=== PATIENT | male | born 1955 | race Caucasian/White ===

== ENCOUNTER → 2016-12-25 | Day surgery (SDC) | payer MEDICAID ==
[~2016-12-25] VITALS: Ht 182.9 cm; Wt 131.5 kg
[~2016-12-25] MED LIST: ACETAMINOPHEN 325 MG TAB PO PRN; ALBU17IN2 INH; ATOR1TAB21 PO; AZEL0.055; AcetaZOLAMIDE 500 MG ER CAP As Ordered ONE; BSS with VANC/TOB/EPI for EYE CASES IR ONE; CYCLOPENTOLATE 2% OPHTH SOLN 2ML BTL OD ONE; GABA-279 PO; GLIM4TAB PO; HEALON DUET (HEALON 10MG/ML 0.55ML & HEALON ENDOCOAT 30MG/ML 0.85ML) As Ordered ONE; IBUP-1022 PO; JANU100T PO; KETOROLAC 0.5% OPHTH SOLN OD ONE; LEVO150T7 PO; LIDOCAINE 1% SDV 5 ML VIAL As Ordered ONE; LIDOCAINE 2% W/EPIN INJ 20ML **PRES FREE As Ordered ONE; LIDOCAINE 4% INJ 5 ML AMP OU ONE; LISI40TAB PO; LR 1,000 ML IV SCH; LR 500 ML IV ONE; MIDAZOLAM INJ 2 MG/2 ML VIAL (J2250) As Ordered ONE; MOXIFLOXACIN IN BSS 0.25MG/0.25ML INTRACAMERAL INJ (OR EYE ONLY)(J2280) As Ordered ONE; OFLOXACIN 0.3 % (OCUFLOX) OPTH SOL 5ML OD ONE; OMEP20CA3 PO; PHENYLEPHRINE 2.5% OPHTH SOL 2ML OD ONE; POVIDONE-IODINE 5% OPHTH PREP SOL 30ML As Ordered ONE; PROPARACAINE 0.5% OPHTH SOL 15ML OD PRN; TRIAMCINOLONE PRES FR 40 MG/ML 1ML(TRIESENCE)(OR EYE ONLY)(J3300 PER 1MG) As Ordered ONE; TRIMETHOBENZAMIDE 300 MG CAP PO PRN; TROPICAMIDE 1% OPHTH SOLN 2ML OD ONE; fentaNYL 100 MCG/2 ML INJECTION (J3010) As Ordered ONE
[2016-12-25 09:15] VITALS: BP 132/76
--- NOTE | 2016-12-26 11:03 | RO ---
DATE OF PROCEDURE: 12/25/2016 PREOPERATIVE DIAGNOSES: Cataract, right eye. Zonular dialysis. POSTOPERATIVE DIAGNOSIS: Cataract, right eye. PROCEDURE: Phacoemulsification with intraocular lens implantation and placement of capsular tension ring (CTR) 14 mm in the right eye. SURGEON: Lubna Ortega MD CHEMIST INTERN: None. COMPLICATIONS: None. PROCEDURE IN DETAIL: After informed consent, a patient that had had previous retinal detachment repair, the patient was brought to the operating room and laid in supine position. The left eye was prepped and draped in a sterile fashion for ophthalmic surgery and a lid speculum was placed. A side port incision was made and EndoCoat was injected into the anterior chamber. Temporal clear cornea incision was made with a 2.5 mm keratome and capsulorrhexis carried out followed by hydrodissection. At this point, it was noted that the patient had a small amount of zonular dialysis inferiorly, probably from the previous surgeries, or for some other reason. After hydrodissectin, phacoemulsification was carried out in a divide and conquer method carefully within the capsular bag. After removing the nuclear material, the CTR 14 mm was introduced because of the 2-3 o'clock hours of zonular dialysis inferiorly. A limited, but almost complete cortical aspiration was done followed by dilation of the capsular bag with Healon and placement of the PCB00 17.0 diopter implant in the bag. Excess viscoelastic was then aspirated. A little more clean up of the cortical material was done. The wound was hydrated and intracameral moxifloxacin was given along with sub-Tenon kenalog. At the end of the case, the case was discussed in detail and the patient returned to the recovery room in stable condition.
== END | disposition home or self-care (01) ==
LOC: M SDC 06:47
PROVIDERS: ATTEND Ophthalmology
DX: H26.9 Unspecified cataract (principal); H59.021 Cataract (lens) fragments in eye following cataract surgery, right eye; I10 Essential (primary) hypertension; E78.00 Pure hypercholesterolemia, unspecified; E11.9 Type 2 diabetes mellitus without complications; E03.9 Hypothyroidism, unspecified; K21.9 Gastro-esophageal reflux disease without esophagitis; M12.9 Arthropathy, unspecified; G47.9 Sleep disorder, unspecified; E78.5 Hyperlipidemia, unspecified; N52.9 Male erectile dysfunction, unspecified; Z88.2 Allergy status to sulfonamides; Z79.899 Other long term (current) drug therapy; Z86.69 Personal history of other diseases of the nervous system and sense organs; Z87.891 Personal history of nicotine dependence
CPT/HCPCS: 66982; A4649; J2250; J2280; J3010; J3300

== ENCOUNTER 2017-01-22 07:00 | Day surgery (SDC) | payer MEDICAID, OTHER ==
[~2017-01-22] VITALS: Ht 182.9 cm; Wt 131.5 kg
[~2017-01-22 07:00] MED LIST changes: -ACETAMINOPHEN 325 MG TAB PO PRN; -AcetaZOLAMIDE 500 MG ER CAP As Ordered ONE; -CYCLOPENTOLATE 2% OPHTH SOLN 2ML BTL OD ONE; +CYCLOPENTOLATE 2% OPHTH SOLN 2ML BTL OS ONE; -KETOROLAC 0.5% OPHTH SOLN OD ONE; +LIDOCAINE 1% SDV 5 ML VIAL SQ ONE; -LIDOCAINE 2% W/EPIN INJ 20ML **PRES FREE As Ordered ONE; +LIDOCAINE 3.5 % 1ML OPHTH TOPICAL GEL OU ONE; -LIDOCAINE 4% INJ 5 ML AMP OU ONE; -LR 500 ML IV ONE; -MIDAZOLAM INJ 2 MG/2 ML VIAL (J2250) As Ordered ONE; -OFLOXACIN 0.3 % (OCUFLOX) OPTH SOL 5ML OD ONE; +OFLOXACIN 0.3 % (OCUFLOX) OPTH SOL 5ML OS ONE; -PHENYLEPHRINE 2.5% OPHTH SOL 2ML OD ONE; +PHENYLEPHRINE 2.5% OPHTH SOL 2ML OS ONE; -PROPARACAINE 0.5% OPHTH SOL 15ML OD PRN; -TRIMETHOBENZAMIDE 300 MG CAP PO PRN; -TROPICAMIDE 1% OPHTH SOLN 2ML OD ONE; +TROPICAMIDE 1% OPHTH SOLN 2ML OS ONE; -fentaNYL 100 MCG/2 ML INJECTION (J3010) As Ordered ONE
[2017-01-22] MEDS ORDERED: MIDAZOLAM INJ 2 MG/2 ML VIAL (J2250) As Ordered ONE (08:10)
[2017-01-22] MEDS ORDERED: fentaNYL 100 MCG/2 ML INJECTION (J3010) As Ordered ONE (08:10)
[2017-01-22 09:35] VITALS: BP 121/66
== END 2017-01-22 09:44 | disposition home or self-care (01) ==
LOC: M SDC 07:00
PROVIDERS: ATTEND Ophthalmology
DX: H26.9 Unspecified cataract (principal); I10 Essential (primary) hypertension; E78.5 Hyperlipidemia, unspecified; G47.9 Sleep disorder, unspecified; R06.83 Snoring; M12.9 Arthropathy, unspecified; K21.9 Gastro-esophageal reflux disease without esophagitis; E03.9 Hypothyroidism, unspecified; Z88.2 Allergy status to sulfonamides; Z79.899 Other long term (current) drug therapy; Z79.84 Long term (current) use of oral hypoglycemic drugs

== ENCOUNTER → 2017-01-30 | Outpatient (CLI) | payer OTHER ==
[~2017-01-30] MED LIST changes: -BSS with VANC/TOB/EPI for EYE CASES IR ONE; -CYCLOPENTOLATE 2% OPHTH SOLN 2ML BTL OS ONE; -HEALON DUET (HEALON 10MG/ML 0.55ML & HEALON ENDOCOAT 30MG/ML 0.85ML) As Ordered ONE; -LIDOCAINE 1% SDV 5 ML VIAL As Ordered ONE; -LIDOCAINE 1% SDV 5 ML VIAL SQ ONE; -LIDOCAINE 3.5 % 1ML OPHTH TOPICAL GEL OU ONE; -LR 1,000 ML IV SCH; -MOXIFLOXACIN IN BSS 0.25MG/0.25ML INTRACAMERAL INJ (OR EYE ONLY)(J2280) As Ordered ONE; -OFLOXACIN 0.3 % (OCUFLOX) OPTH SOL 5ML OS ONE; -PHENYLEPHRINE 2.5% OPHTH SOL 2ML OS ONE; -POVIDONE-IODINE 5% OPHTH PREP SOL 30ML As Ordered ONE; -TRIAMCINOLONE PRES FR 40 MG/ML 1ML(TRIESENCE)(OR EYE ONLY)(J3300 PER 1MG) As Ordered ONE; -TROPICAMIDE 1% OPHTH SOLN 2ML OS ONE
--- NOTE | 2017-02-04 14:22 | SLEEPHOME ---
DATE OF STUDY: 01/30/2017 ORDERED BY: Luma Taylor NP Diagnostic home sleep testing was performed due to concern for the obstructive sleep apnea syndrome. For testing, a NOX-T3 respiratory monitoring device was used. Continuous record was made of pulse, oxygen saturation, airflow, chest and abdominal strain, and body position. 9 hours and 59 minutes of data were reviewed. Of these, 7 hours and 56 minutes were marked as time in bed. During the interval marked time in bed, there were 383 respiratory events identified of 10 seconds in duration or greater for a respiratory event index of 48.2. The events identified were primarily obstructive, but 34 central events were also seen. Baseline pulse rate was 54 beats per minute. Pulse rate ranged 43 to 89. Baseline saturation was 91%. Lowest oxygen saturation was 60%. Testing was performed in both the supine and nonsupine positions. IMPRESSION: Abnormal home sleep testing with repetitive respiratory events and oxygen desaturations to 60% with a respiratory event index of 48.2 is consistent with severe obstructive sleep apnea syndrome. RECOMMENDATION: The patient should be encouraged to undergo formal sleep evaluation and in-laboratory pressure titration.
== END ==
LOC: M SLEEP HO 09:48
PROVIDERS: ATTEND Nurse Practitioner Adult Health
DX: G47.30 Sleep apnea, unspecified (principal)

== ENCOUNTER → 2017-05-22 | Outpatient (CLI) | payer OTHER ==
--- NOTE | 2017-05-22 15:26 | REP ---
Maxillofacial CT without contrast: History: J32.9. CT sinuses. No comparison imaging. Findings: Frontal sinuses are clear. Ethmoid, sphenoid and maxillary sinuses are clear bilaterally. Mastoid aeration is normal and symmetric. The patient is status post scleral banding in the left eye. No other intraorbital abnormality is seen. The bony nasal septum is essentially in the midline without evidence of septal beak. There is no evidence of nasal polyp. Ostiomeatal complexes are patent bilaterally. Impression: The paranasal sinuses are clear. Signed by Izaiah Crespo MD 05/23/2017 08:13 A
== END ==
LOC: M RAD 12:56
PROVIDERS: ATTEND Nurse Practitioner Family
DX: J32.9 Chronic sinusitis, unspecified (principal)

== ENCOUNTER → 2018-06-12 | Outpatient (CLI) | payer OTHER ==
[~2018-06-12] MED LIST changes: +GABA-1171 PO; -GABA-279 PO; +LASI40TA9 PO; +LISI40TA PO; -LISI40TAB PO; +MONT10TA2 PO
--- NOTE | 2018-06-12 19:24 | REP ---
MR LUMBAR SPINE WITHOUT CONTRAST: HISTORY: Back pain. Decreased signal intensity on T2-weighted images is present in the L2-3 through L4-5 intervertebral discs. The L3-4 and L4-5 intervertebral discs are decreased in height. These findings are consistent with disc degeneration. There is no disc bulge or herniation at the L1-2 level. There is hypertrophy of the posterior articulating facets. The L1 nerves exit the neural foramina without compression. A diffuse disc bulge is present at the L2-3 level. There is minimal compression of the thecal sac. There is hypertrophy of the posterior articulating facets. The L2 nerves exit the neural foramina without compression. A diffuse disc bulge is present at the L3-4 level. There is minimal compression of the thecal sac. There is hypertrophy of the posterior articulating facets. The L3 nerves exit the neural foramina without compression. A diffuse disc bulge is present at the L4-5 level. There is hypertrophy of the ligamenta flava and posterior articulating facets. These findings produce minimal central canal stenosis. The L4 nerves exit the neural foramina without compression. A diffuse disc bulge is present at the L5-S1 level. There is minimal compression of the thecal sac. There is hypertrophy of the posterior articulating facets. The L5 nerves exit the neural foramina without compression. The conus medullaris is normal in appearance terminating at the level of the T12-L1 intervertebral disc. Hemangiomas are present in the L2 and L4 vertebral bodies. Increased signal intensity on T2-weighted images is present in the superior endplate of the L4 vertebral body. This represents degenerative change. Normal signal intensity is present in the remaining lumbar vertebral bodies. A limbus vertebra is present at the L4 level. IMPRESSION: 1. Diffuse disc bulges at the L2-3, L3-4 and L5-S1 levels with minimal thecal sac compression. 2. Minimal central canal stenosis at the L4-5 level secondary to disc bulge, ligamentous and facet hypertrophy. Electronically Signed by Tr Peralta MD 06/12/2018 07:26 P
== END ==
LOC: M RAD 17:34
PROVIDERS: ATTEND Nurse Practitioner Family
DX: M51.26 Other intervertebral disc displacement, lumbar region (principal); M51.27 Other intervertebral disc displacement, lumbosacral region; M48.061 Spinal stenosis, lumbar region without neurogenic claudication

== ENCOUNTER 2018-06-30 05:39 | Day surgery (SDC) | payer OTHER ==
[~2018-06-30] VITALS: Ht 185.4 cm; Wt 130.6 kg
[~2018-06-30 05:39] MED LIST changes: +INVO100T PO; +NAPR-885 PO; +SILD50TA2; +TIZA2TA
[2018-06-30] MEDS ORDERED: METHYLENE BLUE 0.5% (5MG/ML) 10 ML AMP (PROVAYBLUE)(Q9968 PER 1MG) As Ordered ONE (06:57)
[2018-06-30] MEDS ORDERED: LIDOCAINE W/EPINEPHRINE 1% 20ML VIAL As Ordered ONE (06:57)
[2018-06-30] MEDS ORDERED: EPINEPHrine 1MG/ML INJ 30ML MD-VIAL As Ordered ONE (06:57)
[2018-06-30] MEDS ORDERED: dexameTHASONE 4 MG/ML 1ML VIAL (J1100) As Ordered ONE (07:19)
[2018-06-30] MEDS ORDERED: MIDAZOLAM INJ 2 MG/2 ML VIAL (J2250) As Ordered ONE (07:19)
[2018-06-30] MEDS ORDERED: fentaNYL 250 MCG/5 ML INJECTION (J3010) As Ordered ONE (07:19)
[2018-06-30] MEDS ORDERED: LIDOCAINE 2% INJ 100 MG/5 ML SDV (FOR ANES.) As Ordered ONE (07:19)
[2018-06-30] MEDS ORDERED: ONDANSETRON 4MG/2ML VIAL (J2405) As Ordered ONE (07:19)
[2018-06-30] MEDS ORDERED: PROPOFOL 200 MG/20 ML VIAL As Ordered ONE (07:19)
[2018-06-30] MEDS ORDERED: ROCURONIUM BROMIDE 50 MG/5 ML VIAL As Ordered ONE ×2 (07:19→07:46)
[2018-06-30] MEDS ORDERED: PHENYLephrine HCL 500 MCG/5 ML (100MCG/ML) SYRINGE (J2370) As Ordered ONE (07:48)
[2018-06-30] MEDS ORDERED: ePHEDrine SULFATE 25 MG/5 ML(5MG/ML) SYRINGE As Ordered ONE (07:48)
[2018-06-30] MEDS ORDERED: SUGAMMADEX SODIUM 500 MG/5 ML VIAL (BRIDION) As Ordered ONE (08:03)
[2018-06-30] MEDS ORDERED: ACETAMINOPH W/CODEINE #3 TAB UD PO PRN (08:45)
[2018-06-30] MEDS ORDERED: PERCOCET 5MG/325MG TAB As Ordered ONE (09:06)
[2018-06-30] MEDS ORDERED: METOCLOPRAMIDE INJ 10MG/2ML VIAL (J2765) IV PRN (09:15)
[2018-06-30] MEDS ORDERED: PERCOCET 5MG/325MG TAB PO PRN (09:15)
[2018-06-30] MEDS ORDERED: MEPERIDINE INJ 25 MG/ML VIAL (J2175) IV PRN (09:15)
[2018-06-30] MEDS ORDERED: fentaNYL 100 MCG/2 ML INJECTION (J3010) IV PRN (09:15)
[2018-06-30] MEDS ORDERED: LR 1,000 ML IV SCH (09:15)
[2018-06-30] MEDS ORDERED: ONDANSETRON 4MG/2ML VIAL (J2405) IV PRN (09:15)
[2018-06-30 10:00] VITALS: BP 132/71
--- NOTE | 2018-06-30 13:55 | RO ---
DATE OF PROCEDURE: 06/30/2018 PREOPERATIVE DIAGNOSES: Nasal septal deviation. Chronic rhinitis. POSTOPERATIVE DIAGNOSES: Nasal septal deviation. Chronic rhinitis. PROCEDURE: Septoplasty, bilateral turbinectomies. SURGEON: Prasanna Garrido MD SENIOR PROPERTY ACCOUNTANT: ANESTHESIA: General. DESCRIPTION OF PROCEDURE: Under general anesthesia with the patient intubated, the patient was draped in the usual manner. The nose was infiltrated with lidocaine with epinephrine and I used pledget of adrenaline 1:1000. I made an incision anterior on the left side. I elevated the subperichondrial and periosteal plane. I the quadrangular cartilage from the maxillary crest and ethmoid plate, and removed portions of both the maxillary crest and ethmoid plate. I fractured the anterior nasal spine because it was deviated towards the left side. Once this was done, I then closed the septum with interrupted and running #4-0 chromic suture. Next, I made an incision anterior to the inferior turbinate on both sides. I elevated the mucosa off of the casey. Then I used the microdebrider to remove a portion of the casey from anterior to the midportion. Once this was done, everything looked good. I closed that incision with #4-0 Vicryl. The patient tolerated the procedure well. Less than 50 mL of estimated blood loss. There was very little bleeding so packing was not placed. The patient was extubated and transferred to the recovery room in excellent condition.
== END 2018-06-30 10:06 | disposition home or self-care (01) ==
LOC: M SDC 05:39
PROVIDERS: ATTEND Otolaryngology
DX: J34.2 Deviated nasal septum (principal); J31.0 Chronic rhinitis; I11.9 Hypertensive heart disease without heart failure; E03.9 Hypothyroidism, unspecified; E11.40 Type 2 diabetes mellitus with diabetic neuropathy, unspecified; M12.9 Arthropathy, unspecified; M51.9 Unspecified thoracic, thoracolumbar and lumbosacral intervertebral disc disorder; R06.83 Snoring; G47.30 Sleep apnea, unspecified; R94.31 Abnormal electrocardiogram [ECG] [EKG]; I50.9 Heart failure, unspecified; Z88.2 Allergy status to sulfonamides; Z79.899 Other long term (current) drug therapy; Z87.891 Personal history of nicotine dependence; Z96.1 Presence of intraocular lens
CPT/HCPCS: 30130; 30520; 88300; 88305; J1100; J2250; J2370; J2405; J3010; Q9968

== ENCOUNTER → 2018-11-13 | Outpatient (CLI) | payer OTHER ==
--- NOTE | 2018-11-13 11:36 | REP ---
MRI LEFT SHOULDER: TECHNIQUE: Axial T2 fat sat, gradient echo, sagittal oblique T2 fat sat, coronal oblique T1, T2 fat sat. There is mild ill-defined high signal in the supraspinatus tendon compatible with mild tendopathy. There is some confluent signal in the distal undersurface of the tendon consistent with a partial undersurface tear. There is also mild tendopathy of the subscapularis tendon. There are mild hypertrophic degenerative changes of the acromioclavicular joint with subchondral marrow edema. Acromion is type I. Biceps tendon is within the bicipital groove with mild surrounding fluid possibly indicating mild tenosynovitis. There is no Hill-Sachs deformity. No abnormal signal is seen in the deltoid muscle. There is fraying of the biceps labral complex. There appears to be a SLAP tear. No other definite labral tear is seen. There is mild chondromalacia of the glenohumeral joint. There is minimal subchondral marrow edema in the superolateral humeral head. There is a small joint effusion. IMPRESSION: Mild tendinopathy subscapularis and supraspinatus tendons. There is a partial undersurface tear of the distal supraspinatus tendon. Mild hypertrophic degenerative changes acromioclavicular joint. Mild fluid surrounding the biceps tendon may indicate tenosynovitis. There is fraying of the biceps labral complex and there appears to be a SLAP tear. Small joint effusion. Mild chondromalacia of the glenohumeral joint. Electronically Signed by Jacob Messina MD 11/17/2018 09:44 A
== END ==
LOC: M PLARAD 07:58
PROVIDERS: ATTEND Nurse Practitioner Family
DX: M25.412 Effusion, left shoulder (principal); M94.212 Chondromalacia, left shoulder; S46.012A Strain of muscle(s) and tendon(s) of the rotator cuff of left shoulder, initial encounter; Y92.9 Unspecified place or not applicable; Y93.9 Activity, unspecified

== ENCOUNTER → 2022-03-15 | Outpatient (REF) | payer MEDICARE, BC ==
[~2022-03-15] MED LIST changes: +ALBU6.7H6 INH; -GLIM4TAB PO; +GLIM4TAB5 PO; -LISI40TA PO; +LISI40TA4 PO; -MONT10TA2 PO; +MONT10TA97 PO; +OMEP1CAP73 PO; -OMEP20CA3 PO
[2022-03-15 18:36] LABS: CREATININE, URINE < 13.0 MG/DL; MALB URINE SIEMENS 8.5 MG/L
== END ==
LOC: M LAB REF 17:10
PROVIDERS: ATTEND Nurse Practitioner Family
DX: E11.65 Type 2 diabetes mellitus with hyperglycemia (principal)

== ENCOUNTER → 2023-02-26 | Outpatient (REF) | payer MEDICARE, BC ==
[2023-02-26 17:55] LABS: MAU/CREAT RATIO 180.9 MCG/MG (0.0-30.0)
== END ==
LOC: M LAB REF 16:48
PROVIDERS: ATTEND Nurse Practitioner Family
DX: E11.65 Type 2 diabetes mellitus with hyperglycemia (principal)